=== PATIENT | female | born 1950 | race Caucasian/White ===

== ENCOUNTER 2020-06-30 10:19 | Emergency (ER) | payer MEDICARE, OTHER ==
[~2020-06-30 10:19] MED LIST: IBUPROFEN800 MG PO
[2020-06-30 10:58] LABS: HEMOGLOBIN 13.1 gm/dl (12.3-15.3); RED BLOOD COUNT 4.31 M/UL (4.00-5.10); WHITE BLOOD COUNT 6.8 K/UL (4.5-11.0)
[2020-06-30 11:20] LABS: BUN/CREATININE RATIO 14 (0-10)
[2020-06-30] MEDS ORDERED: PROPRANOLOL HCL10 MG PO (15:43)
[2020-07-15] MEDS ORDERED: OXYBUTYNIN CHLOR5 MG PO (07:02)
[2020-07-15] MEDS ORDERED: FLONASE ALLER15.8 ML (07:03)
[2020-07-15] MEDS ORDERED: CYANOCOBAL1000 MCG/1 INJ (07:04)
[2020-07-15] MEDS ORDERED: FLECAINIDE ACE100 MG PO (07:05)
[2020-07-15] MEDS ORDERED: PROPRANOLOL HCL10 MG PO (07:05)
[2020-07-15] MEDS ORDERED: CETIRIZINE HCL10 MG PO (07:06)
[2020-07-15] MEDS ORDERED: ACETAMINOPHEN-1 EAC1 PO (07:07)
[2020-07-15] MEDS ORDERED: ONDANSETRON HCL4 MG PO (07:08)
[2020-07-15] MEDS ORDERED: DONEPEZIL HCL10 MG PO (07:09)
[2020-07-15] MEDS ORDERED: ABILIFY 2 MG TAB2 MG PO (07:09)
[2020-07-15] MEDS ORDERED: XANAX0.5 MG PO (07:10)
[2020-07-15] MEDS ORDERED: TRAZODONE HCL150 MG PO (07:11)
[2020-07-15] MEDS ORDERED: LOSARTAN POTASS50 MG PO (07:11)
[2020-07-15] MEDS ORDERED: PEPCID40 MG PO (07:12)
[2020-07-15] MEDS ORDERED: HYDROCODON-ACE1 EAC4 PO (09:11)
[2020-07-24] MEDS ORDERED: HYDROCODON-ACE1 EAC4 PO (11:40)
== END 2020-06-30 16:25 | disposition home or self-care (01) ==
LOC: ER1 10:19
DX: R00.1 Bradycardia, unspecified (principal); T50.905A Adverse effect of unspecified drugs, medicaments and biological substances, initial encounter; I10 Essential (primary) hypertension; Z79.82 Long term (current) use of aspirin; Z88.8 Allergy status to other drugs, medicaments and biological substances; Z85.3 Personal history of malignant neoplasm of breast; C50.412 Malignant neoplasm of upper-outer quadrant of left female breast; Z78.0 Asymptomatic menopausal state
CPT/HCPCS: 70450; 71045; 77080; 80053; 81001; 82550; 82553; 83690; 83735; 83874; 84484; 85025; 85610; 93005; 99284

== ENCOUNTER → 2020-07-11 | Outpatient (CLI) | payer MEDICARE, OTHER ==
[~2020-07-11] MED LIST changes: +ABILIFY 2 MG TAB2 MG PO; +ACETAMINOPHEN-1 EAC1 PO; +CETIRIZINE HCL10 MG PO; +CYANOCOBAL1000 MCG/1 INJ; +DONEPEZIL HCL10 MG PO; +FLECAINIDE ACE100 MG PO; +FLONASE ALLER15.8 ML; +HYDROCODON-ACE1 EAC4 PO; +LOSARTAN POTASS50 MG PO; +ONDANSETRON HCL4 MG PO; +OXYBUTYNIN CHLOR5 MG PO; +PEPCID40 MG PO; +PROPRANOLOL HCL10 MG PO; +TRAZODONE HCL150 MG PO; +XANAX0.5 MG PO
[2020-07-11 11:51] LABS: RED BLOOD COUNT 4.29 M/UL (4.00-5.10); WHITE BLOOD COUNT 5.2 K/UL (4.5-11.0)
[2020-07-11 12:05] LABS: BUN/CREATININE RATIO 11 (0-10)
== END ==
LOC: OPSV2 09:35
PROVIDERS: Anesthesiology
DX: Z01.818 Encounter for other preprocedural examination (principal); C50.912 Malignant neoplasm of unspecified site of left female breast; I10 Essential (primary) hypertension; E07.9 Disorder of thyroid, unspecified; R00.0 Tachycardia, unspecified; E78.5 Hyperlipidemia, unspecified; Z20.822 Contact with and (suspected) exposure to COVID-19; R94.31 Abnormal electrocardiogram [ECG] [EKG]; I44.4 Left anterior fascicular block
CPT/HCPCS: 36415; 80048; 85025; 93005; U0003

== ENCOUNTER → 2020-07-15 | Day surgery (SDC) | payer MEDICARE, OTHER | END | disposition home or self-care (01) | LOC: OR 06:20 | DX: C50.912 Malignant neoplasm of unspecified site of left female breast (principal); G30.9 Alzheimer's disease, unspecified; F02.80 Dementia in other diseases classified elsewhere, unspecified severity, without behavioral disturbance, psychotic disturbance, mood disturbance, and anxiety; I10 Essential (primary) hypertension; E78.5 Hyperlipidemia, unspecified; E11.9 Type 2 diabetes mellitus without complications; K21.9 Gastro-esophageal reflux disease without esophagitis; M19.90 Unspecified osteoarthritis, unspecified site; E03.9 Hypothyroidism, unspecified; F32.9 Major depressive disorder, single episode, unspecified; F43.10 Post-traumatic stress disorder, unspecified; F41.9 Anxiety disorder, unspecified; Z88.8 Allergy status to other drugs, medicaments and biological substances; Z79.899 Other long term (current) drug therapy | CPT/HCPCS: 76098; 88342; J0690; J1100; J2001; J2250; J2405; J2704; J3010; J7030; J7120 ==

== ENCOUNTER → 2020-08-01 | Outpatient (CLI) | payer MEDICARE, OTHER | LOC: NM 07-04 08:10 | DX: C50.412 Malignant neoplasm of upper-outer quadrant of left female breast (principal); Z12.89 Encounter for screening for malignant neoplasm of other sites | CPT/HCPCS: 78306; A9503 ==

== ENCOUNTER 2020-11-21 14:43 | Emergency (ER) | payer MEDICARE, OTHER ==
[2020-11-21 17:27] LABS: HEMOGLOBIN 13.6 gm/dl (12.3-15.3); RED BLOOD COUNT 4.33 M/UL (4.00-5.10); WHITE BLOOD COUNT 4.7 K/UL (4.5-11.0)
[2020-11-21 18:03] LABS: BUN/CREATININE RATIO 10 (0-10)
[2020-11-21] MEDS ORDERED: PERCOCET 5/325 T1 EA PO (18:54)
== END 2020-11-21 19:28 | disposition home or self-care (01) ==
LOC: ER1 14:43
PROVIDERS: Family Medicine
DX: N64.4 Mastodynia (principal); T50.8X5A Adverse effect of diagnostic agents, initial encounter; Z88.8 Allergy status to other drugs, medicaments and biological substances
CPT/HCPCS: 71046; 80053; 85025; 87040; 99283